=== PATIENT | female | born 1995 ===

== ENCOUNTER 2024-07-04 12:35 | Outpatient (CLI) | payer OTHER ==
[2024-07-04 12:43] LABS: BASOPHILS % (AUTO) 0.2 %; EOSINOPHILS # (AUTO) 0.2 10^3/uL (0.0-0.7); EOSINOPHILS % (AUTO) 3.2 %; HCT - HEMATOCRIT 38.2 % (37.0-47.0); HGB - HEMOGLOBIN 12.4 g/dL (12.0-16.0); LYMPHOCYTES # (AUTO) 1.3 10^3/uL (1.5-3.5); LYMPHOCYTES % (AUTO) 23.1 %; MEAN CORPUSCULAR HEMOGLOBIN 30.9 pg (27.0-31.0); MEAN CORPUSCULAR HGB CONC 32.5 g/dL (32.0-36.0); MEAN CORPUSCULAR VOLUME 95.3 fL (81.0-99.0); MONOCYTES # (AUTO) 0.4 10^3/uL (0.0-1.0); MONOCYTES % (AUTO) 7.2 %; NEUTROPHILS # (AUTO) 3.7 10^3/uL (1.5-6.6); NEUTROPHILS % (AUTO) 65.8 %; PLT - PLATELET COUNT 218 10^3/uL (130-450); RED BLOOD COUNT 4.01 10^6/uL (4.20-5.40); RED CELL DISTRIBUTION WIDTH 12.7 % (12.0-15.0); WHITE BLOOD COUNT 5.6 x10^3/uL (4.8-10.8)
[2024-07-04 12:58] LABS: ESTIMATED AVERAGE GLUCOSE 85 mg/dL (70-100); HEMOGLOBIN A1c% 4.6 % (4.27-6.07)
[2024-07-05 01:09] LABS: HIV SCREEN 4TH GENERATION Non Reactive (Non Reactive)
[2024-07-05 03:12] LABS: HBsAG SCREEN Negative (Negative)
[2024-07-05 05:15] LABS: RPR Non Reactive (Non Reactive)
[2024-07-05 08:12] LABS: VARICELLA-ZOSTER AB IGG Reactive (Non Reactive)
[2024-07-06 00:07] LABS: HCV AB Non Reactive (Non Reactive)
== END 2024-07-04 12:36 | disposition home or self-care (01) ==
LOC: LAB.WC 12:35
PROVIDERS: ATTEND Nurse Practitioner
DX: Z34.80 Encounter for supervision of other normal pregnancy, unspecified trimester (principal)
CPT/HCPCS: 36415; 83036; 85025; 86592; 86762; 86787; 86803; 86850; 86900; 86901; 87340; 87389